=== PATIENT | female | born 1995 | race African-American/Black ===

== ENCOUNTER → 2018-05-04 14:41 | Outpatient (CLI) | payer OTHER, SELFPAY ==
--- NOTE | 2018-05-04 14:33 | DI.RAD.S_ITS ---
PROCEDURE: XR FINGER LT MIN 2V INDICATIONS: pain TECHNIQUE: AP hand, 2 views of the left first finger(s) acquired. COMPARISON: None. FINDINGS: Bones: No fractures or dislocations. No suspicious bony lesions. Soft tissues: No suspicious soft tissue calcifications. IMPRESSION: No acute radiographic findings. If pain persists, followup imaging in 5-7 days is recommended to exclude occult fracture. Dictated by: Catarina Ornelas M.D. on 05/04/2018 at 14:55 Approved by: Catarina Ornelas M.D. on 05/04/2018 at 14:56
== END ==
PROVIDERS: PCP Family Medicine; Visit Provider Physician Assistant
DX: M79.645 Pain in left finger(s) (principal)
CPT/HCPCS: 73140